=== PATIENT | male | born 1945 | race Caucasian/White ===

== ENCOUNTER 2020-01-30 12:57 | Emergency (ER) | payer MEDICARE ==
[~2020-01-30] VITALS: Ht 172.7 cm; Wt 103.0 kg
[2020-01-30 14:59] LABS: INTERNATIONAL NORM RATIO 0.9 (2.0-3.5)
[2020-01-30 15:07] LABS: ALBUMIN 3.3 gm/dl (3.1-4.5); ALKALINE PHOSPHATASE 83 U/L (45-117); BUN 19 mg/dl (7-24); CHLORIDE 100 mmol/L (98-107); CREATININE 1.29 mg/dL (0.70-1.30); POTASSIUM 4.2 mmol/L (3.5-5.1); SGOT/AST 39 IU/L (3-35); SGPT/ALT 27 U/L (12-78); SODIUM 134 mmol/L (136-145); TOTAL PROTEIN 6.7 gm/dL (6.4-8.2)
[2020-01-30 15:10] LABS: TROPONIN I < 0.015 ng/ml (<0.045)
[2020-01-30 15:29] LABS: BILIRUBIN Negative (Negative); BLOOD Negative (Negative); CLARITY Clear (Clear); COLOR Yellow (Yellow); GLUCOSE Negative (Negative); KETONE 1+ (Negative); LEUKO ESTERASE Negative (Negative); NITRITE Negative (Negative); PH 5.5 (4.5-8.0); SPECIFIC GRAVITY 1.015 (1.001-1.030); UROBILINOGEN 0.2 E.U./dl (0.0-1.0)
[2020-01-30 15:45] LABS: WBC 0-2 wbc/hpf (0-5)
[2020-01-30 15:56] LABS: HEMATOCRIT 43.1 % (42.0-52.0); MEAN CELL VOLUME 91.3 fl (80.0-94.0); MEAN CORPUSCULAR HGB 30.3 pg (27.0-31.0); MEAN CORPUSCULAR HGB CONC 33.2 g/dl (33.0-37.0); RED BLOOD COUNT 4.72 10*6/uL (4.50-5.90); WHITE BLOOD COUNT 2.9 10*3/uL (4.8-10.8)
[2020-01-30 15:57] LABS: BASO % 0.3 % (0.0-1.0); LYMPH # 0.8 10*3/uL (1.3-4.4); LYMPH % 28.9 % (27.0-41.0); MEAN PLATELET VOLUME 10.8 fl (9.6-12.3); MONO # 0.4 10*3/uL (0.1-1.0); MONO % 15.3 % (3.0-9.0); NEUT # 1.6 10*3/uL (2.3-7.9); NEUT % 55.5 % (47.0-73.0); PLATELET COUNT AUTOMATED 153 10*3/uL (130-400); RED CELL DISTRI WIDTH 12.8 % (0-14.5)
== END 2020-01-30 16:05 | disposition left against medical advice (07) ==
LOC: ED 12:57
PROVIDERS: Physician Assistant
DX: R42 Dizziness and giddiness (principal); M25.512 Pain in left shoulder; Z53.29 Procedure and treatment not carried out because of patient's decision for other reasons

== ENCOUNTER → 2020-01-31 | Outpatient (CLI) | payer MEDICARE ==
[~2020-01-31] MED LIST: DECADRON6 M1 PO
== END | disposition home or self-care (01) ==
LOC: COVID19 11:21
PROVIDERS: ATTEND Internal Medicine
DX: U07.1 COVID-19 (principal)

== ENCOUNTER 2020-02-03 14:12 | Emergency (ER) | payer MEDICARE ==
[~2020-02-03] VITALS: Ht 175.2 cm; Wt 97.5 kg
[2020-02-03 15:34] LABS: HEMATOCRIT 46.2 % (42.0-52.0); LYMPH # 0.6 10*3/uL (1.3-4.4); MEAN CELL VOLUME 89.7 fl (80.0-94.0); MEAN CORPUSCULAR HGB 30.3 pg (27.0-31.0); MEAN CORPUSCULAR HGB CONC 33.8 g/dl (33.0-37.0); MONO # 0.5 10*3/uL (0.1-1.0); MONO % 12.5 % (3.0-9.0); NEUT # 2.9 10*3/uL (2.3-7.9); NEUT % 72.3 % (47.0-73.0); PLATELET COUNT AUTOMATED 170 10*3/uL (130-400); RED BLOOD COUNT 5.15 10*6/uL (4.50-5.90); RED CELL DISTRI WIDTH 12.8 % (0-14.5)
[2020-02-03 15:48] LABS: ACT PARTIAL THROMBO TIME 32.5 SECONDS (20.0-32.1); INTERNATIONAL NORM RATIO 0.9 (2.0-3.5)
[2020-02-03 15:57] LABS: ALBUMIN 3.1 gm/dl (3.1-4.5); ALKALINE PHOSPHATASE 78 U/L (45-117); BUN 17 mg/dl (7-24); CHLORIDE 100 mmol/L (98-107); CREATININE 1.12 mg/dL (0.70-1.30); LDH 398 U/L (87-241); POTASSIUM 4.1 mmol/L (3.5-5.1); SGOT/AST 83 IU/L (3-35); SGPT/ALT 63 U/L (12-78); SODIUM 134 mmol/L (136-145); TROPONIN I < 0.015 ng/ml (<0.045)
[2020-02-03] MEDS ORDERED: DECADRON6 M1 PO (17:04)
== END 2020-02-03 19:20 | disposition home or self-care (01) ==
LOC: ED 14:12
PROVIDERS: Family Medicine
DX: U07.1 COVID-19 (principal); J12.89 Other viral pneumonia

== ENCOUNTER → 2021-02-08 | Outpatient (CLI) | payer MEDICARE | END | disposition home or self-care (01) | LOC: COVID19 16:27 | PROVIDERS: ATTEND Internal Medicine | DX: Z11.52 Encounter for screening for COVID-19 (principal) ==

== ENCOUNTER → 2022-01-06 | Day surgery (SDC) | payer MEDICARE ==
[~2022-01-06] VITALS: Ht 172.7 cm; Wt 106.6 kg
[~2022-01-06] MED LIST changes: +ALPHAGAN-P 0.2%5 ML OU; +CYMBALTA60 MG PO; +METHOTREXATE2.5 MG PO; +NATURE'S BLEND F1 MG PO; +OMEPRAZOLE MAGN20 MG PO; +SULFASALAZINE500 M1 PO; +TEGRETOL200 MG PO; +TERAZOSIN HCL10 M1 PO; +TERAZOSIN HCL5 M1 PO
[2022-01-06 08:15] VITALS: BP 151/75
[2022-01-06 08:49] VITALS: BP 120/64
[2022-01-06 09:01] VITALS: BP 146/78
[2022-01-06 09:04] VITALS: BP 147/82
[2022-01-06 09:19] VITALS: BP 1515/86
== END | disposition home or self-care (01) ==
LOC: SDC 01-02 14:00
PROVIDERS: ATTEND Surgery
DX: Z12.11 Encounter for screening for malignant neoplasm of colon (principal); K57.30 Diverticulosis of large intestine without perforation or abscess without bleeding; Z86.010 Personal history of colon polyps; J45.909 Unspecified asthma, uncomplicated; F41.9 Anxiety disorder, unspecified; Z79.899 Other long term (current) drug therapy; Z87.891 Personal history of nicotine dependence; Z98.890 Other specified postprocedural states
CPT/HCPCS: 00812; G0105